=== PATIENT | female | born 1935 | race Caucasian/White ===

== ENCOUNTER → 2018-05-16 | Outpatient (CLI) | payer OTHER, MEDICARE ==
[~2018-05-16] VITALS: Ht 152.4 cm; Wt 59.4 kg
[~2018-05-16] MED LIST: ACETAMINOPHEN325 M1 PO; ARIMIDEX PO; ASA81BEC PO; ATENOLOL 25 MG25 M1 PO; ATENOLOL OR; AZITHROMYCIN 2250 MG PO; B-100 COMPLEX1 EAC1 PO; CALCIUM 500 +1 EAC5 PO; CLARITIN10 MG PO; CLARITIN5 MG PO; CO Q-10100 MG PO; COLACE100 MG PO; COZAAR 50 MG TA50 M2 PO; FENOFIBRATE160 MG PO; FENOFIBRATE200 MG PO; FERREX-150 PLU150 MG PO; FISH OIL 1,001000 M1 PO; FISHOIL OR; FUROSEMIDE 40 M40 MG PO; GLUCOSAMINE HC500 MG PO; KLOR-CON 10 ER10 MEQ PO; LASIX 40 MG TAB40 M1 OR; LASIX 40 MG TAB40 M2 PO; LORTAB 5-500 T1 EAC1 PO; METFORMIN HCL500 MG PO; METROCREAM45 GM TOP; MIRALAX255 GM PO; MOTION RELIEF25 MG PO; MOVE FREE ULTR1 EAC1 PO; MULTIVITAMINS OR; NITROSTAT0.4 M1 SUBLING; NYAMYC15 GM TOP; NYSTATIN15 G3 TOP; OMEGA-31000 M1 PO; OMEPRAZOLE OR; OMEPRAZOLE40 MG PO; PACERONE 200 M200 MG PO; PEPCID AC20 M1 PO; PERCOCET 5-3251 EACH PO; PRILOSEC40 MG PO; PROMETHAZI6.25 MG/2 PO; SIMVASTATIN40 MG PO; TUMS PO; UNICOMPLEX M TA1 TA1 PO; XANAX 0.5 MG0.5 M1 PO; ZESTRIL2.5 MG PO; ZETIA10 MG PO
--- NOTE | ~2018-05-16 | P ---
[facility] [address] [place] [address] PROCEDURE REPORT Name: MEME PERDOMO Room #: REG [facility]#: [id number] Admission: 05/16/18 Attend Phys: Kirt Huff MD Discharge: Date of : 37 Report #: [id number] THIS REPORT FOR: //name// CC: Kirt Serna MD BRIEF HISTORY: The patient is an 82-year-old woman with complaints of nausea without vomiting. She also describes burning in the stomach and also burning in the throat. She has dysphagia for pills. She also reports that she needs to cut meat into small pieces. She does have diabetes and reports she has no appetite, but does not describe typical early satiety of a diabetic patient. PREOPERATIVE DIAGNOSES: Abdominal pain and nausea. POSTOPERATIVE DIAGNOSES: 1. Antral gastritis. 2. Small hiatus hernia. 3. Mild Schatzki ring. MEDICATIONS: Deep sedation with propofol per Anesthesia. SPECIMEN: Biopsies of gastritis. ESTIMATED BLOOD LOSS: 3 mL. PROCEDURE: EGD with biopsy and Brown dilator. FINDINGS: Prior to propofol sedation, the procedure of upper endoscopy and dilation were discussed with the patient as well as potential risks and its complications. She indicates she understands and desires to proceed. DESCRIPTION OF PROCEDURE: With the patient in left lateral decubitus position, the Olympus video endoscope was inserted in the cervical esophagus under direct vision without difficulty. Examination of this organ through its entire length revealed normal esophageal mucosa down the squamocolumnar junction. The squamocolumnar junction was inspected and noted to be unremarkable without evidence of ulcers, erosions or Berry mucosa. Intermittently, a mild ring was seen, which may be the source of her dysphagia. The distal esophagus was also a little tortuous, but again no tight strictures were encountered. The scope was advanced and a small hiatus hernia was seen. It was no more than about 2 cm in greatest dimension. The mucosa and hernia were normal. The scope was advanced into the stomach, was examined on end view as well as retroflexed views. There was an erythematous gastritis with the linear pattern in the antrum of the stomach, but no ulcers were seen. There is no evidence of bowel obstruction. No retained solids or liquids are seen in the stomach. Biopsies obtained of the gastritis. Upon retroflexion, the small hiatus hernia was seen. No other [address] [address] PROCEDURE REPORT Name: MEME PERDOMO Room #: REG [facility]#: [id number] Admission: 05/16/18 Attend Phys: Kirt Huff MD Discharge: Date of : 37 Report #: [id number] abnormalities were identified. The pylorus was unremarkable. Duodenal bulb and postbulbar sweep were inspected and noted to be unremarkable. At that point, the scope was slowly withdrawn and careful circumferential views confirmed the above findings. The patient tolerated the procedure well. Subsequently, she was dilated with passage of 50-Kyr[place] Brown dilator. There was no resistance upon passing the dilator. CONDITION OF THE PATIENT UPON DISCHARGE: Following procedure, the patient is drowsy, aroused, conversant and will be discharged home when fully ambulatory. INSTRUCTIONS TO THE PATIENT AND FAMILY AT THE TIME OF DISCHARGE: I do not see evidence of ulcer disease or endoscopic evidence of gastroparesis. She does clearly describe burning symptoms. We will have her increase her omeprazole to 40 mg twice daily. We will also obtain a gastric emptying study. If she has further problems with dysphagia, she can return for dilation on an as needed basis and to return to care to Dr. Esau Serna. She is to follow up in our office if her symptoms do not improve. <ELECTRONICALLY SIGNED> By: Kirt Huff MD 05/17/18 [id number] Kirt Huff MD /nt
--- NOTE | ~2018-05-16 | PATH ---
[facility] [place] [address] PATHOLOGY RPT PROCEDURE Name: CYNTHIA PERDOMO SEE Room #: REG [facility] Caitlin.#: [id number] Admission: 05/16/18 Date of : 37 Discharge: Report #: [id number] Path Case #: [id number] Accession Number: [id number] . 01 Material submitted: . GASTRITIS . 01 Clinical history: . Pre-op diagnosis: Nausea, GERD, dysphagia Post-op diagnosis: Gastritis, dysphagia, small hiatal hernia, Schatzki's ring . 02 Diagnosis: Gastric mucosa, gastritis, rule out H. pylori, endoscopic biopsy: - Sbzl-[id number] reactive gastropathy. - One fragment showing dilated fundic gland. - Negative for intestinal metaplasia or atrophy. - Negative for Helicobacter pylori (properly-controlled immunohistochemical stain performed). . (IUV:mml; 05/20/18) [facility]/05/20/2018 . 02 Electronically signed: . Nayla Doty MD, Pathologist NPI- [id number] . 01 Gross description: . The specimen is received in formalin, labeled "Cynthia Perdomo, gastritis biopsy, R/O H. pylori". Received are five segments of pale ivory soft tissue ranging in size from 0.2 to 0.5 cm in maximum dimensions. The specimen is submitted entirely in cassette A1. (CAA; 05/17/2018) QAC/QAC . 02 Pathologist provided ICD-10: K31.9 . 02 CPT . 362634, [id number] Performed at: [address], [place] [id number] MD Chance Gutierrez MD Phone: [phone] Performed at: [address] [id number] [address] [address] PATHOLOGY RPT PROCEDURE Name: PER[facility]OCYNTHIA [id number] Admission: 05/16/18 Date of : 37 Discharge: Report #: [id number] Path Case #: [id number] MD Nayla Doty MD Phone: [phone]
== END | disposition home or self-care (01) ==
LOC: GI 07:42
DX: K29.70 Gastritis, unspecified, without bleeding (principal); K44.9 Diaphragmatic hernia without obstruction or gangrene; K22.2 Esophageal obstruction; K31.9 Disease of stomach and duodenum, unspecified; I10 Essential (primary) hypertension; E78.00 Pure hypercholesterolemia, unspecified; Z95.1 Presence of aortocoronary bypass graft; K21.9 Gastro-esophageal reflux disease without esophagitis; E11.9 Type 2 diabetes mellitus without complications; Z85.3 Personal history of malignant neoplasm of breast; Z90.710 Acquired absence of both cervix and uterus; E78.5 Hyperlipidemia, unspecified; Z98.41 Cataract extraction status, right eye; Z98.42 Cataract extraction status, left eye; Z85.828 Personal history of other malignant neoplasm of skin; Z79.899 Other long term (current) drug therapy; Z88.8 Allergy status to other drugs, medicaments and biological substances; Z79.82 Long term (current) use of aspirin
CPT/HCPCS: 62110; 62900

== ENCOUNTER → 2020-04-15 | Outpatient (CLI) | payer OTHER | LOC: SJCVC 13:17 | PROVIDERS: ATTEND Internal Medicine Cardiovascular Disease | DX: R94.31 Abnormal electrocardiogram [ECG] [EKG] (principal); I25.10 Atherosclerotic heart disease of native coronary artery without angina pectoris; R07.89 Other chest pain; R01.1 Cardiac murmur, unspecified; E78.00 Pure hypercholesterolemia, unspecified; I10 Essential (primary) hypertension; E11.9 Type 2 diabetes mellitus without complications ==

== ENCOUNTER → 2020-04-21 | Outpatient (CLI) | payer OTHER | LOC: SJCVCIMAG 07:04 | PROVIDERS: ATTEND Internal Medicine Cardiovascular Disease | DX: I07.1 Rheumatic tricuspid insufficiency (principal); R00.0 Tachycardia, unspecified; I25.810 Atherosclerosis of coronary artery bypass graft(s) without angina pectoris; I10 Essential (primary) hypertension; E78.5 Hyperlipidemia, unspecified; E11.9 Type 2 diabetes mellitus without complications; Z95.1 Presence of aortocoronary bypass graft; Z79.82 Long term (current) use of aspirin; Z79.899 Other long term (current) drug therapy ==

== ENCOUNTER → 2021-03-10 | Outpatient (CLI) | payer OTHER | LOC: SJCVC 12:47 | PROVIDERS: ATTEND Internal Medicine Cardiovascular Disease | DX: R94.31 Abnormal electrocardiogram [ECG] [EKG] (principal); I45.10 Unspecified right bundle-branch block; I25.10 Atherosclerotic heart disease of native coronary artery without angina pectoris; I10 Essential (primary) hypertension; E78.00 Pure hypercholesterolemia, unspecified; E11.9 Type 2 diabetes mellitus without complications; Z79.82 Long term (current) use of aspirin; Z79.84 Long term (current) use of oral hypoglycemic drugs; Z95.1 Presence of aortocoronary bypass graft; Z88.1 Allergy status to other antibiotic agents; Z88.5 Allergy status to narcotic agent ==